=== PATIENT | male | born 1960 | race Caucasian/White ===

== ENCOUNTER 2021-06-06 16:06 | Outpatient (CLI) | payer BC, SELFPAY ==
[2021-06-06 16:58] LABS: Absolute Lymphocyte Count 2.09 X10^3/uL (0.83-4.51); Absolute Neutrophil Count 6.6 X10^3/uL (2.0-7.7); Basophil# 0.07 X10^3/uL; Basophil% 0.7 % (0-1); Eosinophil# 0.54 X10^3/uL; Eosinophils% 5.2 % (0-5); Hematocrit 39.1 % (40-54); Hemoglobin 12.8 g/dL (13.0-16.5); Lymphocyte # 2.09 X10^3/ul (0.83-4.51); Mean Corp Hgb Conc 32.7 g/dL (32-36); Mean Corpuscular Hgb 30.9 pg (27.0-32.0); Mean Corpuscular Volume 94.4 fL (80-94); Mean Platelet Vol. 10.9 fl (6.2-12.0); Monocyte# 1.12 X10^3/uL; Monocyte% 10.7 % (0-10); NRBC Flagged by Analyzer 0 % (0-5); Platelet Count 298 K/mm3 (150-450); RBC Distribution Width CV 13.6 % (11.6-14.6); RBC Distribution Width SD 48.1 fl (35.1-43.9); Red Blood Count 4.14 M/mm3 (4.6-6.2); White Blood Count 10.5 K/mm3 (4.4-11.0)
[2021-06-06 17:14] LABS: Hemoglobin A1c 5.5 % (3.8-5.6)
[2021-06-06 17:44] LABS: Vitamin D,25 Hydroxy 14.8 ng/mL
[2021-06-06 17:50] LABS: ALB/GLOB Ratio 1.2 RATIO (0.9-2.4); AST(SGOT) 19 U/L (15-37); Alanine Aminotransfer ALT/SGPT 26 U/L (16-61); Albumin, Serum 3.8 g/dL (3.2-5.0); Alkaline Phosphatase 87 U/L (45-117); Anion Gap 4 (5-15); BUN 26 mg/dL (7-18); Calcium,Total 8.7 mg/dL (8.5-10.1); Chloride 103 mmol/L (98-107); Cholesterol 158 mg/dL (200); Creatinine, Serum 1.18 mg/dL (0.70-1.30); EST Glomerular Filtration Rate 67 mL/min (>60); Est Glom Filt Rate - Afr Amer 81 mL/min (>60); Globulin 3.2 g/dL (2.2-4.2); Glucose 67 mg/dL (74-106); High Density Lipoprotein 31 mg/dL; PSA,Total - Annual Screen 2.79 ng/mL (0.00-4.00); Potassium 3.5 mmol/L (3.5-5.1); Sodium Level 137 mmol/L (136-145); T4 Free Direct 1.01 ng/dL (0.76-1.46); Triglycerides 83 mg/dL; Very Low Density Lipoprotein 17 mg/dL (5-40)
== END 2021-06-06 23:59 | disposition short-term general hospital (02) ==
LOC: BIMLAB 16:07
PROVIDERS: PCP Internal Medicine; Referring Provider Internal Medicine; Visit Provider Internal Medicine
DX: E03.9 Hypothyroidism, unspecified (principal); M53.9 Dorsopathy, unspecified; E78.5 Hyperlipidemia, unspecified; I10 Essential (primary) hypertension; M19.90 Unspecified osteoarthritis, unspecified site; J30.2 Other seasonal allergic rhinitis; Z12.5 Encounter for screening for malignant neoplasm of prostate
CPT/HCPCS: 36415; 80053; 80061; 82306; 83036; 84153; 84439; 84443; 84481; 85025; G0103

== ENCOUNTER 2021-06-23 17:44 | Outpatient (CLI) | payer BC, SELFPAY ==
--- NOTE | 2021-06-23 17:46 | CT_ITS ---
STUDY: CT ABDOMEN WITH CONTRAST REASON FOR EXAM: Male, 60 years old. Pain, possible incarcerated hernia RADIATION DOSAGE (If Supplied By Facility): CTDIvol = ( 17.38 ) mGy, DLP = ( 783.91 ) mGycm TECHNIQUE: Transaxial images were obtained post I.V. administration of Oral and amp; IV Read i-CAT and amp; 100mL Isovue-300, and with oral contrast. Sagittal and coronal images were reconstructed. Individualized dose optimization techniques were used for this CT. COMPARISON: None. FINDINGS: The visualized lung bases are unremarkable. The visualized portions of the heart are within normal limits. Normal liver. Normal gallbladder and extrahepatic biliary system. Normal spleen. Normal pancreas. Normal bilateral adrenal glands. Normal right kidney. Normal left kidney. Normal visualized stomach. Normal small intestine. Retained stool noted throughout the majority of the colon. There are scattered colonic diverticula without CT evidence of acute diverticulitis. There is non-visualization of the appendix. There is diffuse atherosclerotic calcification of the abdominal aorta, without a demonstrated aneurysm. Normal inferior vena cava. Normal retroperitoneum. There is a prominent fat-containing hernia just to the right of midline but no evidence of associated inflammation to suspect incarceration. There is no associated ileus or obstruction. There are diffuse degenerative changes of the visualized lumbar spine, and pelvis. CT/Abdomen WITH IV Contrast IMPRESSION: No suspicious solid abnormality Fat-containing ventral hernia just to the right of midline but no evidence of incarceration or acute inflammation. Scattered colonic diverticula, no CT evidence of acute diverticulitis Degenerative bony changes Electronically Signed: Miguel Wright MD at 19:11 EST ,
== END 2021-06-23 23:59 | disposition home or self-care (01) ==
LOC: CT 17:46
PROVIDERS: PCP Internal Medicine; Visit Provider Surgery
DX: K46.0 Unspecified abdominal hernia with obstruction, without gangrene (principal)
CPT/HCPCS: 74160; Q9967

== ENCOUNTER 2021-07-13 10:22 | Emergency (ER) | payer BC, SELFPAY ==
[2021-07-13 10:22] VITALS: BP 161/94; PULSE 74; RESP 18; TEMP 36.6; O2SAT 100; BMI 34.5
--- NOTE | 2021-07-13 10:53 | EDS_ITS ---
HPI History of Present Illness HPI Narrative: Patient presents with right knee pain that has been getting progressively worse over the past 2 weeks. Patient denies any trauma or injury. Patient describes his pain as sharp. Patient states it is worse with ambulation. Patient states he walks approximately 7 miles per day at work. Patient states his knee has been giving out on him at times. Patient denies any other paresthesias or weakness. Patient denies any swelling. Chief Complaint: Lower Extremity Injury Informant: patient Onset/Context/Timing Onset: Weeks (2) Context: Gradual Onset Timing: Continuous Quality of Pain: Sharp Location: Right knee Worsened by: Ambulation Relieved by: Nothing Associated Symptoms Associated Symptoms: Positive for Weakness (Gives out at times); Negative for Parasthesia and Loss of Funtion PFSH [facility] Medical History Arthritis Back problem Hyperlipemia Hypertension Hypothyroidism Seasonal allergies Home Medications albuterol sulfate 90 mcg/actuation aerosol inhaler 2 puff INHALATION Q6H PRN #8.5 g 06/05/21 [Rx Last Taken Unknown] cyclobenzaprine 5 mg tablet 5 mg PO BID #180 tab 06/05/21 [Rx Last Taken Unknown] ferrous sulfate 325 mg (65 mg iron) tablet 325 mg PO BID #180 tab 06/05/21 [Rx Last Taken Unknown] lisinopril 20 mg-hydrochlorothiazide 25 mg tablet 1 tab PO BID #180 tab 06/05/21 [Rx Last Taken Unknown] meloxicam 15 mg tablet 15 mg PO DAILY #90 tab 06/05/21 [Rx Last Taken Unknown] paroxetine HCl 20 mg tablet 20 mg PO DAILY #90 tab 06/05/21 [Rx Last Taken Unknown] trazodone 100 mg tablet 100 mg PO DAILY #90 tab 06/05/21 [Rx Last Taken Unknown] levothyroxine 137 mcg tablet 137 mcg PO DAILY #90 tab 06/09/21 [Rx Last Taken Unknown] Allergy/AdvReac Type Severity Reaction Status Date / Time Penicillins Allergy Unknown unknown Verified 07/13/21 10:24 Sulfa (Sulfonamide Allergy Unknown unknown Verified 07/13/21 10:24 Antibiotics) Family History Mother Hypertension Father Cancer Surgical History History of appendectomy History of neck surgery History of umbilical hernia repair History of vasectomy Social History Smoking Status: Current every day smoker tobacco type: cigarettes alcohol intake: never substance use type: does not use ROS ROS ED Constitutional Constitutional ED: Denies chills or fever(s) Eyes Eyes: Denies blurry vision or change in vision ENT ENT ED: Denies rhinorrhea or sore throat Cardiovascular Cardiovascular: Denies chest pain or palpitations Respiratory/Chest Respiratory/Chest: Denies cough or dyspnea Gastrointestinal Gastrointestinal: Denies nausea or vomiting Genitourinary Genitourinary ED: Denies dysuria or hematuria Musculoskeletal Musculoskeletal: Reports neck pain; Denies back pain Integumentary Denies abscess or rash Neurologic Neurologic: Denies headache(s) or weakness Allergic/Immunologic Allergic/Immunologic ED: Denies mouth swelling or urticaria EXAM Physical Exam Const Vital Signs: 07/13/21 10:22 Temperature 97.8 F Temperature Source Temporal Pulse Rate 74 Respiratory Rate 18 Blood Pressure 161/94 H Blood Pressure Mean 116 Pulse Ox 100 Oxygen Delivery Method Room Air Positive well nourished, well developed and obese General Appearance ED: well developed and NAD Nutritional Appearance: obese HEENT Reports moist mucous membranes Neck full ROM Extremity Extremity Narrative: There is tenderness over the medial aspect of the right knee. There is no edema or ecchymosis. There is no bony crepitance or step- off. There is no effusion. There is good range of motion. Extensor mechanism is intact. Strength is 5/5 bilaterally in the lower extremities. There are no sensory deficits. Pedal pulses are equal bilaterally. Neuro oriented x3, CN's II-XII intact bilaterally, moves all extremities and no sensory deficits noted Sensorium / Orientation: alert Motor Exam: strength 5/5 throughout Psych mental status grossly normal MDM MDM MDM Narrative Medical decision making narrative: X-rays of the right knee were obtained. There are 4 views. On my interpretation, there is no acute fracture. There is no dislocation. There are some degenerative changes noted. There is no soft tissue swelling. Radiologist also interpreted the x-rays and agrees. Patient was instructed to ice and elevate the right knee. Patient was given restrictions for work. Patient was instructed to continue his meloxicam as prescribed. Patient was instructed to follow-up with his primary care physician in 5 to 7 days. Patient understood and was agreeable with the plan. All questions were answered. Radiography Diagnostic Testing: Clinical Impression(s) from Imaging Studies Knee X-Ray 07/13/21 11:15 IMPRESSION: Degenerative arthrosis. Electronically Signed: Elroy Velázquez MD at 11:58 EST Reading Location ID and State: [facility] / [place] , Service support , Discharge Plan Triage Chief Complaint: Lower Extremity Injury ED Provider: Yogesh James Dx/Rx/DC Orders Clinical Impression: Pain in right knee Instructions: ED Knee Pain of Uncertain Cause, ED Osteoarthritis Prescriptions: No Action ferrous sulfate 325 mg (65 mg iron) tablet 325 mg PO BID Qty: 180 RF: 1 cyclobenzaprine 5 mg tablet 5 mg PO BID Qty: 180 RF: 1 lisinopril-hydrochlorothiazide 20-25 mg tablet 1 tab PO BID Qty: 180 RF: 1 meloxicam 15 mg tablet 15 mg PO DAILY Qty: 90 RF: 1 paroxetine HCl 20 mg tablet 20 mg PO DAILY Qty: 90 RF: 1 trazodone 100 mg tablet 100 mg PO DAILY Qty: 90 RF: 1 albuterol sulfate 90 mcg/actuation HFA aerosol inhaler 2 puff inhalation Q6H PRN (Reason: shortness of breath or wheezing) Qty: 8.5 RF: 1 levothyroxine 137 mcg tablet 137 mcg PO DAILY Qty: 90 RF: 0 Stand Alone Forms: Work Status Form Primary Care Provider: Gladis Carbone Referrals: Gladis Carbone MD [Primary Care Provider] - 3-5 Days Disposition Disposition: Home, Self Care
--- NOTE | 2021-07-13 11:15 | RAD_ITS ---
STUDY: X-RAY - RIGHT KNEE REASON FOR EXAM: Male, 60 years old. Injury/Pain TECHNIQUE: For view(s) of the knee. COMPARISON: None. FINDINGS: Normal visualized distal femur. Normal visualized proximal tibia and fibula. Normal proximal tibiofibular articulation. There is no demonstrated fracture. There is mild degenerative arthrosis of the medial femorotibial compartment. Normal lateral femorotibial compartment. There is mild degenerative arthrosis of the patellofemoral articulation. There is a soft tissue prominence in the suprapatellar region suggesting a small volume joint effusion. The soft tissue structures are unremarkable. RAD/Knee 4 or More Views IMPRESSION: Degenerative arthrosis. Electronically Signed: Elroy Velázquez MD at 11:58 EST ,
== END 2021-07-13 12:58 | disposition home or self-care (01) ==
PROVIDERS: Emergency Provider Emergency Medicine; PCP Internal Medicine; Visit Provider Emergency Medicine
DX: M25.561 Pain in right knee (principal)
CPT/HCPCS: 73564; 99282

== ENCOUNTER → 2021-11-19 | Outpatient (CLI) | payer BC, SELFPAY ==
[2021-11-19 15:55] LABS: AST(SGOT) 21 U/L (15-37); Alanine Aminotransfer ALT/SGPT 28 U/L (16-61); Albumin, Serum 3.5 g/dL (3.2-5.0); Alkaline Phosphatase 100 U/L (45-117); Anion Gap 5 (5-15); BUN 32 mg/dL (7-18); BUN/Creat Ratio 26.4 RATIO (10-20); Chloride 104 mmol/L (98-107); Creatinine, Serum 1.21 mg/dL (0.70-1.30); EST Glomerular Filtration Rate 65 mL/min (>60); Est Glom Filt Rate - Afr Amer 79 mL/min (>60); Globulin 3.4 g/dL (2.2-4.2); Glucose 106 mg/dL (74-106); Protein, Total 6.9 g/dL (6.4-8.2); Sodium Level 141 mmol/L (136-145); T4 Free Direct 0.98 ng/dL (0.76-1.46)
== END | disposition home or self-care (01) ==
LOC: BIMLAB 11:53
PROVIDERS: PCP Internal Medicine; Referring Provider Internal Medicine; Visit Provider Internal Medicine
DX: I10 Essential (primary) hypertension (principal); E03.9 Hypothyroidism, unspecified
CPT/HCPCS: 36415; 80053; 84439; 84443; 84481

== ENCOUNTER → 2022-02-03 | Outpatient (CLI) | payer BC, SELFPAY ==
[2022-02-03 15:59] LABS: Free T3 2.2 pg/mL (2.18-3.98); T4 Free Direct 1.24 ng/dL (0.76-1.46)
== END | disposition home or self-care (01) ==
LOC: BIMLAB 14:19
PROVIDERS: PCP Internal Medicine; Referring Provider Internal Medicine; Visit Provider Internal Medicine
DX: E03.9 Hypothyroidism, unspecified (principal)
CPT/HCPCS: 36415; 84439; 84443; 84481

== ENCOUNTER → 2022-06-09 | Outpatient (CLI) | payer BC, SELFPAY ==
[2022-06-09 15:34] LABS: Absolute Lymphocyte Count 1.39 X10^3/uL (0.83-4.51); Absolute Neutrophil Count 7.5 X10^3/uL (2.0-7.7); Basophil# 0.06 X10^3/uL; Basophil% 0.6 % (0-1); Eosinophil# 0.49 X10^3/uL; Eosinophils% 4.5 % (0-5); Hematocrit 44.2 % (40-54); Hemoglobin 14.4 g/dL (13.0-16.5); Lymphocyte # 1.39 X10^3/ul (0.83-4.51); Lymphocyte % 12.8 % (19-41); Mean Corp Hgb Conc 32.6 g/dL (32-36); Mean Corpuscular Hgb 31.2 pg (27.0-32.0); Mean Corpuscular Volume 95.9 fL (80-94); Mean Platelet Vol. 10.6 fl (6.2-12.0); Monocyte# 1.38 X10^3/uL; Monocyte% 12.7 % (0-10); NRBC Flagged by Analyzer 0 % (0-5); Neutrophil % 68.7 % (47-70); Platelet Count 366 K/mm3 (150-450); RBC Distribution Width SD 53.3 fl (35.1-43.9); Red Blood Count 4.61 M/mm3 (4.6-6.2); White Blood Count 10.9 K/mm3 (4.4-11.0)
[2022-06-09 16:26] LABS: ALB/GLOB Ratio 1.1 RATIO (0.9-2.4); AST(SGOT) 20 U/L (15-37); Alanine Aminotransfer ALT/SGPT 29 U/L (16-61); Albumin, Serum 3.8 g/dL (3.2-5.0); Alkaline Phosphatase 103 U/L (45-117); Anion Gap 7 (5-15); BUN 24 mg/dL (7-18); BUN/Creat Ratio 22.2 RATIO (10-20); Calcium,Total 9.1 mg/dL (8.5-10.1); Chloride 99 mmol/L (98-107); Cholesterol 159 mg/dL (200); Creatinine, Serum 1.08 mg/dL (0.70-1.30); EST Glomerular Filtration Rate 74 mL/min (>60); Est Glom Filt Rate - Afr Amer 90 mL/min (>60); Free T3 1.9 pg/mL (2.18-3.98); Globulin 3.5 g/dL (2.2-4.2); Glucose 98 mg/dL (74-106); High Density Lipoprotein 28 mg/dL; Iron 86 ug/dL (65-175); Iron Binding Capacity,Total 288 ug/dL (250-450); PERCENT IRON SATURATION 29.9 % (15.0-55.0); Protein, Total 7.3 g/dL (6.4-8.2); Sodium Level 140 mmol/L (136-145); T4 Free Direct 1.16 ng/dL (0.76-1.46); Triglycerides 235 mg/dL; Very Low Density Lipoprotein 47 mg/dL (5-40)
[2022-06-09 16:58] LABS: Vitamin D,25 Hydroxy 22.1 ng/mL
== END | disposition home or self-care (01) ==
LOC: BIMLAB 14:36
PROVIDERS: PCP Internal Medicine; Referring Provider Internal Medicine; Visit Provider Internal Medicine
DX: E03.9 Hypothyroidism, unspecified (principal); E78.5 Hyperlipidemia, unspecified; I10 Essential (primary) hypertension; E55.9 Vitamin D deficiency, unspecified; D64.9 Anemia, unspecified
CPT/HCPCS: 36415; 80053; 80061; 82306; 83540; 83550; 84153; 84439; 84443; 84481; 85025; G0103

== ENCOUNTER → 2022-07-24 | Outpatient (CLI) | payer BC, SELFPAY ==
[2022-07-24 12:37] LABS: Free T3 1.9 pg/mL (2.18-3.98); T4 Free Direct 1.29 ng/dL (0.76-1.46)
== END | disposition home or self-care (01) ==
LOC: BIMLAB 09:37
PROVIDERS: PCP Internal Medicine; Visit Provider Internal Medicine
DX: E03.9 Hypothyroidism, unspecified (principal)
CPT/HCPCS: 36415; 84439; 84443; 84481

== ENCOUNTER → 2022-09-18 | Outpatient (CLI) | payer BC, SELFPAY ==
[2022-09-18 13:22] LABS: Free T3 2.3 pg/mL (2.18-3.98); T4 Free Direct 1.46 ng/dL (0.76-1.46)
== END | disposition home or self-care (01) ==
LOC: BIMLAB 08:59
PROVIDERS: PCP Internal Medicine; Referring Provider Internal Medicine; Visit Provider Internal Medicine
DX: E03.9 Hypothyroidism, unspecified (principal)
CPT/HCPCS: 36415; 84439; 84443; 84481

== ENCOUNTER → 2022-11-17 | Outpatient (CLI) | payer BC, SELFPAY ==
[2022-11-17 12:22] LABS: Absolute Lymphocyte Count 1.67 X10^3/uL (0.83-4.51); Basophil# 0.06 X10^3/uL; Basophil% 0.7 % (0-1); Eosinophil# 0.48 X10^3/uL; Eosinophils% 5.7 % (0-5); Hematocrit 42.2 % (40-54); Hemoglobin 13.7 g/dL (13.0-16.5); Lymphocyte # 1.67 X10^3/ul (0.83-4.51); Mean Corp Hgb Conc 32.5 g/dL (32-36); Mean Corpuscular Hgb 31.1 pg (27.0-32.0); Mean Corpuscular Volume 95.9 fL (80-94); Mean Platelet Vol. 10.9 fl (6.2-12.0); Monocyte# 1.15 X10^3/uL; Monocyte% 13.8 % (0-10); NRBC Flagged by Analyzer 0 % (0-5); Neutrophil # 4.97 X10^3/uL (2.7-7.7); Neutrophil % 59.4 % (47-70); Platelet Count 388 K/mm3 (150-450); RBC Distribution Width CV 14.4 % (11.6-14.6); RBC Distribution Width SD 50.3 fl (35.1-43.9); White Blood Count 8.4 K/mm3 (4.4-11.0)
[2022-11-17 12:33] LABS: Vitamin D,25 Hydroxy 90.2 ng/mL
[2022-11-17 13:09] LABS: AST(SGOT) 20 U/L (15-37); Alanine Aminotransfer ALT/SGPT 40 U/L (16-61); Albumin, Serum 3.6 g/dL (3.2-5.0); Alkaline Phosphatase 102 U/L (45-117); Anion Gap 8 (5-15); BUN 11 mg/dL (7-18); BUN/Creat Ratio 10.4 RATIO (10-20); Calcium,Total 9.1 mg/dL (8.5-10.1); Chloride 100 mmol/L (98-107); Cholesterol 166 mg/dL (200); Creatinine, Serum 1.06 mg/dL (0.70-1.30); EST Glomerular Filtration Rate 76 mL/min (>60); Est Glom Filt Rate - Afr Amer 91 mL/min (>60); Free T3 2.8 pg/mL (2.18-3.98); Globulin 3.6 g/dL (2.2-4.2); Glucose 68 mg/dL (74-106); High Density Lipoprotein 28 mg/dL; Potassium 3.3 mmol/L (3.5-5.1); Protein, Total 7.2 g/dL (6.4-8.2); Sodium Level 135 mmol/L (136-145); T4 Free Direct 1.84 ng/dL (0.76-1.46); Thyroid Stim Hormone (TSH) 0.34 uIU/mL (0.358-3.74); Triglycerides 159 mg/dL; Very Low Density Lipoprotein 32 mg/dL (5-40)
== END | disposition home or self-care (01) ==
LOC: BIMLAB 08:39
PROVIDERS: PCP Internal Medicine; Visit Provider Internal Medicine
DX: E55.9 Vitamin D deficiency, unspecified (principal); D64.9 Anemia, unspecified; E03.9 Hypothyroidism, unspecified; E78.5 Hyperlipidemia, unspecified; I10 Essential (primary) hypertension
CPT/HCPCS: 36415; 80053; 80061; 82306; 84439; 84443; 84481; 85025

== ENCOUNTER → 2023-05-07 | Outpatient (CLI) | payer BC, SELFPAY ==
[2023-05-07 12:48] LABS: Free T3 2.7 pg/mL (2.18-3.98); T4 Free Direct 1.27 ng/dL (0.76-1.46); Thyroid Stim Hormone (TSH) 6.55 uIU/mL (0.358-3.74)
== END | disposition home or self-care (01) ==
LOC: BIMLAB 10:41
PROVIDERS: PCP Internal Medicine; Referring Provider Internal Medicine; Visit Provider Internal Medicine
DX: E03.9 Hypothyroidism, unspecified (principal)
CPT/HCPCS: 36415; 84439; 84443; 84481

== ENCOUNTER → 2023-06-15 | Outpatient (CLI) | payer BC, SELFPAY ==
--- NOTE | 2023-06-15 06:59 | CT_ITS ---
STUDY: LOW DOSE CT LUNG CANCER SCREENING REASON FOR EXAM: Male, 62 years old. Chronic long-term smoker. Patient smoke between 2 and 4 packs per day for 46 years. RADIATION DOSAGE (If Supplied By Facility): CTDIvol = ( 4.02 ) mGy, DLP = ( 152 ) mGycm TECHNIQUE: No contrast was administered. Low dose technique was utilized (average mAS-38 and kVp 120). 1.25 mm axial source images with a slice interval of 1.25-mm were reconstructed in lung windows. 2.5 mm axial source images with a slice interval of 2.5-mm were reconstructed in lung windows. 5.0 mm axial source images with a slice interval of 5.0-mm were reconstructed in soft tissue windows. COMPARISON: None. NODULES: No suspicious nodules are seen. Emphysema: There is evidence of linear scarring in the right middle lobe as well as in the lingular segment of the left upper lobe. Endobronchial lesion: None Aorta: Mild atherosclerotic calcific plaques at the level of the aortic arch. CORONARY ARTERIES: Coronary artery calcification is seen. Heart: Unremarkable Pulmonary artery: Unremarkable Mediastinal nodes: Small benign appearing mediastinal lymph nodes. Other chest and abdominal findings: CT/Low Dose CT Lung Screening IMPRESSION: Lung-RADS category 2 - Continue annual screening with LDCT in 12 months. IMPORTANT NOTES FOR USE: ACR Lung-RADS Version 1.1 Assessment Categories Release Date: 2018 Category: Coded 0-4 bases on nodule(s) with highest degree of suspicion. Negative screen is defined as categories 1 and 2; a positive screen is defined as categories 3 and 4. Category 3 and 4A nodules that are unchanged on interval CT should be coded as category 2, and individuals returned to screening in 12 months. Category 4X: Category 3 or 4 nodules with additional imaging findings that increase the suspicion of lung cancer, such as spiculation, GGN that doubles in size in 1 year, enlarged lymph notes, etc. Category Modifiers: S (significant finding unrelated to lung cancer) Electronically Signed: Arsen Black MD at 8:44 EST ,
== END | disposition home or self-care (01) ==
PROVIDERS: PCP Internal Medicine; Referring Provider Internal Medicine; Visit Provider Internal Medicine
DX: Z12.2 Encounter for screening for malignant neoplasm of respiratory organs (principal); F17.210 Nicotine dependence, cigarettes, uncomplicated
CPT/HCPCS: 71271

== ENCOUNTER 2023-07-16 06:18 | Day surgery (SDC) | payer BC, SELFPAY ==
[2023-07-16 06:44] VITALS: BP 136/87; PULSE 102; RESP 18; TEMP 36.6; O2SAT 97; BMI 36.1
--- NOTE | 2023-07-16 06:46 | HP.PCM_ITS ---
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 Blindstitch Required: No Is patient in pain?: No Allergies Penicillins Allergy (Unknown, Verified 06/15/23 08:07) unknownSulfa (Sulfonamide Antibiotics) Allergy (Unknown, Verified 06/15/23 08:07) unknown Medications Handicap Placard #1 ea 05/31/23 [Rx Confirmed 06/15/23] albuterol sulfate 90 mcg/actuation aerosol inhaler 2 puff inhalation Q6H PRN shortness of breath or wheezing #8.5 grams 05/31/23 [Rx Confirmed 06/15/23] cyclobenzaprine 5 mg tablet 5 mg PO BID #180 tabs 05/31/23 [Rx Confirmed 06/15/23] ferrous sulfate 325 mg (65 mg iron) tablet 325 mg PO BID #180 tabs 05/31/23 [Rx Confirmed 06/15/23] levothyroxine 137 mcg tablet 137 mcg PO DAILY #90 tabs 05/31/23 [Rx Confirmed 06/15/23] lisinopril 20 mg-hydrochlorothiazide 25 mg tablet 1 tab PO BID #180 tabs 05/31/23 [Rx Confirmed 06/15/23] meloxicam 15 mg tablet 15 mg PO DAILY #90 tabs 05/31/23 [Rx Confirmed 06/15/23] paroxetine HCl 20 mg tablet 20 mg PO DAILY #90 tabs 05/31/23 [Rx Confirmed 06/15/23] trazodone 100 mg tablet 100 mg PO DAILY #90 tabs 05/31/23 [Rx Confirmed 06/15/23] varenicline 0.5 mg (11)-1 mg (42) tablets in a dose pack (Chantix Starting Month Box) See Rx Instructions PO PER PKG DIR #53 tabs 05/31/23 [Rx Confirmed 06/15/23] varenicline 1 mg tablet (Chantix Continuing Month Box) 1 mg PO BID Cigarette smoker #60 tabs 05/31/23 [Rx Confirmed 06/15/23] PFSH Medical History Arthritis Back problem Hyperlipemia Hypertension Hypothyroidism Seasonal allergies Surgical History History of appendectomy History of neck surgery History of umbilical hernia repair History of vasectomy Family History Mother HypertensionFather Cancer Social History Smoking Status: Current every day smoker tobacco type: cigarettes alcohol intake: never substance use type: does not use HPI HPI HPI: 62-year-old gentleman presents for evaluation regarding iron deficiency anemia. I had previously seen him June 16, 2021 with a 30-year history of recurrent ventral incisional hernia at the umbilicus which was asymptomatic. He had ongoing tobacco use at that time and an abnormal clinical pulmonary exam consistent with COPD. I did not feel that he was a good candidate to proceed with a hernia repair. We obtained a CT of the abdomen on June 23, 2021. That demonstrated a fat-containing ventral hernia just to the right of the midline but with no evidence of incarceration or acute inflammation. I have personally reviewed the CT images and again there is a safe amount of fatty tissue within that hernia I measured the fascial defect to be approximately 24 mm. His current laboratory most recently from November 17, 2022 demonstrates a hemoglobin of 13.7 with hematocrit of 42.2 and a platelet count of 388,000. Potassium level at that time was low at 3.3. By report he has been on long-term iron replacement. He has never had a screening colonoscopy. The patient is referred by Dr. Gladis Carbone written compromise surgical consult and recommendations will return to him. We again briefly talked about his recurrent ventral hernia at the umbilicus. It is absolutely asymptomatic to him. He is not interested in pursuing repair. He states occasionally has bright red blood in his stool notes been going on for at least 10 to 15 years and he attributes that to hemorrhoids. ROS Endo Endocrine: Yes thyroid disease Musc Musculoskeletal: Yes back problems, arthritis and joint pain Cardio Cardiovascular: Yes high blood pressure Gastro Gastrointestinal: Yes blood in stool and Yes hemorrhoids Exam Const General: cooperative, comfortable and no acute distress HENMT Head: normal to inspection Eyes General: appearance normal, both eyes and all related structures Chest Other: Increased AP diameter Resp Other: Slight wheeze more on the right than the left Cardio Rate: regular rate Rhythm: regular rhythm GI Other: Overweight, well-healed oblique incision right lower quadrant remote appendectomy, large soft subcutaneous mass just to the right of the umbilicus. Not reducible. Musc Cervical Spine: normal cervical lordosis Skin Other: Hyperpigmentation bilateral lower extremities bilateral malleolar Neuro General: patient alert, patient awake and patient oriented x3 Extrem General: no calf tenderness Other: 1+ edema bilateral lower extremities Psych Appearance: grossly normal Assessment and Plan Assessment and Plan (1) Smoking greater than 40 pack years: Status: Acute (2) Incarcerated hernia: Status: Acute (3) Screening for intestinal cancer: Status: Acute Plan: We did briefly discuss his recurrent ventral incisional hernia to the right of the umbilicus. I suggested we could pursue a repair but I would do my best to try to leverage him off his tobacco ahead of time. He has had the area for a long long time and it is asymptomatic and he is not interested in pursuing repair at this time. He did state that he is working with Dr. Gladis Carbone in an attempt to try to cease his tobacco use. I have discussed with him the screening colonoscopy with possible biopsy or polypectomy as indicated. He is aware of the technique, benefit, risk, alternatives. Because of his long-term tobacco use we will use monitored anesthesia care. I appreciate the ongoing option of assisting with the surgical care. Copy: Dr. Gladis Manjarrez M.D., F.A.C.S I have examined the patient and the H&P has been reviewed. There are no clinical changes since date of exam. Plan to proceed with a screening colonoscopy today with possible biopsy or polypectomy as indicated. He is aware of the technique, benefit, risk, alternatives. He has had an opportunity to ask and have questions answered. We will proceed as noted. Israel Manjarrez M.D., F.A.C.S.
[2023-07-16] MEDS: Lactated Ringers 1,000 ML 15 ML IV (06:55)
[2023-07-16 07:45] VITALS: BP 136/87; BP 77/65; PULSE 90; RESP 20; TEMP 36.6; O2SAT 90
--- NOTE | 2023-07-16 07:47 | OP.COLON_ITS ---
Patient Name: Asher Young Procedure Date: 07/16/2023 7:11 AM Date of : 1960 Age: 62 Procedure: Colonoscopy Indications: Screening for colorectal malignant neoplasm Providers: Israel Manjarrez MD Referring MD: Gladis Carbone Medicines: See the Anesthesia note for documentation of the administered medications Patient Profile: Last Colonoscopy: none. The patient's first colonoscopy is today. Complications: No immediate complications. Procedure: Pre-Anesthesia Assessment: - Prior to the procedure, a History and Physical was performed, and patient medications and allergies were reviewed. The patient's tolerance of previous anesthesia was also reviewed. The risks and benefits of the procedure and the sedation options and risks were discussed with the patient. All questions were answered, and informed consent was obtained. Prior Anticoagulants: The patient has taken no anticoagulant or antiplatelet agents. ASA Grade Assessment: II - A patient with mild systemic disease. After reviewing the risks and benefits, the patient was deemed in satisfactory condition to undergo the procedure. After I obtained informed consent, the scope was passed under direct vision. Throughout the procedure, the patient's blood pressure, pulse, and oxygen saturations were monitored continuously. The adult colonoscope was introduced through the anus and advanced to the cecum, identified by appendiceal orifice and ileocecal valve. The colonoscopy was performed without difficulty. The patient tolerated the procedure well. The quality of the bowel preparation was good. The ileocecal valve and the appendiceal orifice were photographed. Scope In: 7:29:03 AM Scope Withdrawal Time 0 hours 6 minutes 37 seconds Scope Out: 7:40:55 AM Total Procedure Duration Time 0 hours 11 minutes 52 seconds Findings: The digital rectal exam findings include non-thrombosed internal hemorrhoids and internal hemorrhoids that prolapse with straining, but spontaneously regress to the resting position (Grade II). Pertinent negatives include normal prostate (size, shape, and consistency). Multiple diverticula were found in the sigmoid colon and descending colon. The exam was otherwise without abnormality. Impression: - Non-thrombosed internal hemorrhoids and internal hemorrhoids that prolapse with straining, but spontaneously regress to the resting position (Grade II) found on digital rectal exam. - Diverticulosis in the sigmoid colon and in the descending colon. - The examination was otherwise normal. - No specimens collected. Recommendation: - Discharge patient to home. - Resume previous diet. - Continue present medications. - Repeat colonoscopy in 10 years for screening purposes. Procedure Code(s): --- Professional --- 92971, Colonoscopy, flexible; diagnostic, including collection of specimen(s) by brushing or washing, when performed (separate procedure) Diagnosis Code(s): --- Professional --- Z12.11, Encounter for screening for malignant neoplasm of colon K64.1, Second degree hemorrhoids K57.30, Diverticulosis of large intestine without perforation or abscess without bleeding CPT copyright 2021 [employer]. All rights reserved. The codes documented in this report are preliminary and upon asp net c developer review may be revised to meet current compliance requirements. Israel Manjarrez MD 07/16/2023 7:47:29 AM This report has been signed electronically. Number of Addenda: 0 Note Initiated On: 07/16/2023 7:11 AM
--- NOTE | 2023-07-16 07:47 | OP.CCLET_ITS ---
07/16/2023 Gladis Carbone [facility] [address] [place] [address] Re : Colonoscopy procedure for Asher Young Dear Dr. Carbone This procedure was performed on Sunday, July 16, 2023. My impressions and recommendations are as follows: Impressions : - Non-thrombosed internal hemorrhoids and internal hemorrhoids that prolapse with straining, but spontaneously regress to the resting position (Grade II) found on digital rectal exam. - Diverticulosis in the sigmoid colon and in the descending colon. - The examination was otherwise normal. - No specimens collected. Recommendations : - Discharge patient to home. - Resume previous diet. - Continue present medications. - Repeat colonoscopy in 10 years for screening purposes. My findings are described in the full procedure note, which is enclosed. If I can be of further assistance, please feel free to contact me at Doctor phone number(s): Work: . Sincerely, Israel Manjarrez MD 07/16/2023 7:47:29 AM This report has been signed electronically.
[2023-07-16 07:48] VITALS: BP 136/87; BP 88/59; PULSE 96; RESP 18; O2SAT 94
[2023-07-16 07:51] VITALS: BP 108/65; BP 136/87; PULSE 94; RESP 18; O2SAT 94
[2023-07-16 07:55] VITALS: BP 114/75; BP 136/87; PULSE 93; RESP 18; TEMP 36.6; O2SAT 93
[2023-07-16 08:16] VITALS: BP 136/87
== END 2023-07-16 08:25 | disposition home or self-care (01) ==
LOC: EN 06:23 → AC 06:24
PROVIDERS: PCP Internal Medicine; Referring Provider Internal Medicine; Visit Provider Surgery
PROC: 0DJD8ZZ Inspection of Lower Intestinal Tract, Via Natural or Artificial Opening Endoscopic (ICD-10-PCS; CPT 45378; principal; 2023-07-16 07:25)
DX: Z12.11 Encounter for screening for malignant neoplasm of colon (principal); K43.9 Ventral hernia without obstruction or gangrene; K64.1 Second degree hemorrhoids; D50.9 Iron deficiency anemia, unspecified; K57.30 Diverticulosis of large intestine without perforation or abscess without bleeding; I10 Essential (primary) hypertension; E03.9 Hypothyroidism, unspecified; F17.210 Nicotine dependence, cigarettes, uncomplicated; Z79.51 Long term (current) use of inhaled steroids; Z79.899 Other long term (current) drug therapy
CPT/HCPCS: 45378; J7120; J2405

== ENCOUNTER → 2023-11-22 | Outpatient (CLI) | payer BC, SELFPAY ==
[2023-11-22 12:05] LABS: Absolute Lymphocyte Count 1.78 X10^3/uL (0.83-4.51); Absolute Neutrophil Count 8.4 X10^3/uL (2.0-7.7); Basophil# 0.06 X10^3/uL; Basophil% 0.5 % (0-1); Eosinophil# 0.59 X10^3/uL; Eosinophils% 4.8 % (0-5); Hematocrit 39.4 % (40-54); Hemoglobin 12.9 g/dL (13.0-16.5); Lymphocyte # 1.78 X10^3/ul (0.83-4.51); Lymphocyte % 14.5 % (19-41); Mean Corp Hgb Conc 32.7 g/dL (32-36); Mean Corpuscular Hgb 32.7 pg (27.0-32.0); Mean Corpuscular Volume 99.7 fL (80-94); Mean Platelet Vol. 10.4 fl (6.2-12.0); Monocyte# 1.39 X10^3/uL; Monocyte% 11.3 % (0-10); NRBC Flagged by Analyzer 0 % (0-5); Neutrophil # 8.39 X10^3/uL (2.7-7.7); Neutrophil % 68.3 % (47-70); Platelet Count 546 K/mm3 (150-450); RBC Distribution Width CV 13.6 % (11.6-14.6); RBC Distribution Width SD 49.9 fl (35.1-43.9); Red Blood Count 3.95 M/mm3 (4.6-6.2); White Blood Count 12.3 K/mm3 (4.4-11.0)
[2023-11-22 12:31] LABS: Vitamin D,25 Hydroxy 80.5 ng/mL
[2023-11-22 13:19] LABS: ALB/GLOB Ratio 1.6 RATIO (0.9-2.4); AST(SGOT) 24 U/L (15-37); Alanine Aminotransfer ALT/SGPT 29 U/L (16-61); Albumin, Serum 4.2 g/dL (3.2-5.0); Alkaline Phosphatase 75 U/L (45-117); Anion Gap 9 (5-15); BUN 21 mg/dL (7-18); BUN/Creat Ratio 19.3 RATIO (10-20); Chloride 98 mmol/L (98-107); Cholesterol 169 mg/dL (200); Creatinine, Serum 1.09 mg/dL (0.70-1.30); EST Glomerular Filtration Rate 73 mL/min (>60); Est Glom Filt Rate - Afr Amer 88 mL/min (>60); Free T3 2.2 pg/mL (2.18-3.98); Globulin 2.7 g/dL (2.2-4.2); Glucose 83 mg/dL (74-106); High Density Lipoprotein 28 mg/dL; Iron 80 ug/dL (65-175); Iron Binding Capacity,Total 235 ug/dL (250-450); Potassium 3.5 mmol/L (3.5-5.1); Protein, Total 6.9 g/dL (6.4-8.2); Sodium Level 135 mmol/L (136-145); T4 Free Direct 1.34 ng/dL (0.76-1.46); Triglycerides 185 mg/dL; Very Low Density Lipoprotein 37 mg/dL (5-40)
== END | disposition home or self-care (01) ==
LOC: BIMLAB 08:23
PROVIDERS: PCP Internal Medicine; Referring Provider Internal Medicine; Visit Provider Internal Medicine
DX: Z00.00 Encounter for general adult medical examination without abnormal findings (principal); E03.9 Hypothyroidism, unspecified; E55.9 Vitamin D deficiency, unspecified; E78.5 Hyperlipidemia, unspecified; I10 Essential (primary) hypertension; Z12.5 Encounter for screening for malignant neoplasm of prostate
CPT/HCPCS: 36415; 80053; 80061; 82306; 83540; 83550; 83735; 84153; 84439; 84443; 84481; 85025; G0103

== ENCOUNTER → 2023-12-09 | Outpatient (CLI) | payer BC, SELFPAY ==
[2023-12-09 12:14] LABS: Absolute Lymphocyte Count 1.62 X10^3/uL (0.83-4.51); Absolute Neutrophil Count 8.3 X10^3/uL (2.0-7.7); Basophil# 0.07 X10^3/uL; Basophil% 0.6 % (0-1); Eosinophil# 0.77 X10^3/uL; Eosinophils% 6.4 % (0-5); Hematocrit 38.3 % (40-54); Hemoglobin 12.7 g/dL (13.0-16.5); Lymphocyte # 1.62 X10^3/ul (0.83-4.51); Lymphocyte % 13.4 % (19-41); Mean Corp Hgb Conc 33.2 g/dL (32-36); Mean Corpuscular Hgb 32.4 pg (27.0-32.0); Mean Corpuscular Volume 97.7 fL (80-94); Mean Platelet Vol. 10.4 fl (6.2-12.0); Monocyte# 1.24 X10^3/uL; Monocyte% 10.3 % (0-10); NRBC Flagged by Analyzer 0 % (0-5); Neutrophil # 8.25 X10^3/uL (2.7-7.7); Neutrophil % 68.5 % (47-70); Platelet Count 628 K/mm3 (150-450); RBC Distribution Width CV 13.6 % (11.6-14.6); RBC Distribution Width SD 49.3 fl (35.1-43.9); Red Blood Count 3.92 M/mm3 (4.6-6.2); White Blood Count 12.1 K/mm3 (4.4-11.0)
== END | disposition home or self-care (01) ==
LOC: BIMLAB 09:03
PROVIDERS: PCP Internal Medicine; Referring Provider Internal Medicine; Visit Provider Internal Medicine
DX: D75.839 Thrombocytosis, unspecified (principal)
CPT/HCPCS: 36415; 85025

== ENCOUNTER → 2024-06-20 | Outpatient (CLI) | payer BC, SELFPAY ==
[2024-06-20 12:30] LABS: Vitamin B12 989 pg/mL (211-911); Vitamin D,25 Hydroxy 46.5 ng/mL
[2024-06-20 12:35] LABS: Absolute Lymphocyte Count 1.61 X10^3/uL (0.83-4.51); Absolute Neutrophil Count 7.8 X10^3/uL (2.0-7.7); Basophil# 0.06 X10^3/uL; Basophil% 0.5 % (0-1); Eosinophil# 0.81 X10^3/uL; Eosinophils% 7.1 % (0-5); Hematocrit 40.6 % (40-54); Hemoglobin 13.2 g/dL (13.0-16.5); Lymphocyte # 1.61 X10^3/ul (0.83-4.51); Mean Corp Hgb Conc 32.5 g/dL (32-36); Mean Corpuscular Hgb 32.8 pg (27.0-32.0); Mean Corpuscular Volume 100.7 fL (80-94); Mean Platelet Vol. 10.3 fl (6.2-12.0); Monocyte# 1.12 X10^3/uL; Monocyte% 9.8 % (0-10); NRBC Flagged by Analyzer 0 % (0-5); Neutrophil # 7.83 X10^3/uL (2.7-7.7); Neutrophil % 68.2 % (47-70); Platelet Count 578 K/mm3 (150-450); RBC Distribution Width SD 51.4 fl (35.1-43.9); Red Blood Count 4.03 M/mm3 (4.6-6.2); White Blood Count 11.5 K/mm3 (4.4-11.0)
[2024-06-20 13:20] LABS: ALB/GLOB Ratio 1.2 RATIO (0.9-2.4); AST(SGOT) 29 U/L (15-37); Alanine Aminotransfer ALT/SGPT 42 U/L (16-61); Albumin, Serum 4.1 g/dL (3.2-5.0); Alkaline Phosphatase 77 U/L (45-117); Anion Gap 10 (5-15); BUN 23 mg/dL (7-18); BUN/Creat Ratio 18.1 RATIO (10-20); Calcium,Total 9.7 mg/dL (8.5-10.1); Chloride 101 mmol/L (98-107); Cholesterol 172 mg/dL (200); Creatinine, Serum 1.27 mg/dL (0.70-1.30); EST Glomerular Filtration Rate 61 mL/min (>60); Est Glom Filt Rate - Afr Amer 74 mL/min (>60); Free T3 2.2 pg/mL (2.18-3.98); Globulin 3.4 g/dL (2.2-4.2); Glucose 72 mg/dL (74-106); High Density Lipoprotein 29 mg/dL; Potassium 3.2 mmol/L (3.5-5.1); Protein, Total 7.5 g/dL (6.4-8.2); Sodium Level 138 mmol/L (136-145); T4 Free Direct 1.37 ng/dL (0.76-1.46); Triglycerides 286 mg/dL; Very Low Density Lipoprotein 57 mg/dL (5-40)
== END | disposition home or self-care (01) ==
LOC: BIMLAB 08:19
PROVIDERS: PCP Internal Medicine; Referring Provider Internal Medicine; Visit Provider Internal Medicine
DX: D72.829 Elevated white blood cell count, unspecified (principal); R79.89 Other specified abnormal findings of blood chemistry; F17.210 Nicotine dependence, cigarettes, uncomplicated; E03.9 Hypothyroidism, unspecified; E78.5 Hyperlipidemia, unspecified; I10 Essential (primary) hypertension; E55.9 Vitamin D deficiency, unspecified; Z13.220 Encounter for screening for lipoid disorders
CPT/HCPCS: 36415; 80053; 80061; 82306; 82607; 84439; 84443; 84481; 85025

== ENCOUNTER → 2024-08-02 | Outpatient (CLI) | payer BC, SELFPAY ==
[2024-08-02 12:50] LABS: Carboxyhemoglobin Order 6.2
[2024-08-02 13:53] LABS: Absolute Lymphocyte Count 1.87 X10^3/uL (0.83-4.51); Absolute Neutrophil Count 12.2 X10^3/uL (2.0-7.7); Basophil# 0.08 X10^3/uL; Basophil% 0.5 % (0-1); Eosinophils% 4.8 % (0-5); Hematocrit 40.2 % (40-54); Hemoglobin 13.7 g/dL (13.0-16.5); Lymphocyte # 1.87 X10^3/ul (0.83-4.51); Lymphocyte % 11.1 % (19-41); Mean Corp Hgb Conc 34.1 g/dL (32-36); Mean Corpuscular Volume 99.8 fL (80-94); Mean Platelet Vol. 10.3 fl (6.2-12.0); Monocyte# 1.76 X10^3/uL; Monocyte% 10.5 % (0-10); NRBC Flagged by Analyzer 0 % (0-5); Neutrophil # 12.15 X10^3/uL (2.7-7.7); Neutrophil % 72.4 % (47-70); POSITIVE DIFFERENTIAL YES; Platelet Count 636 K/mm3 (150-450); RBC Distribution Width CV 13.3 % (11.6-14.6); RBC Distribution Width SD 49.1 fl (35.1-43.9); RET-HE 37.2 pg (30-35); Red Blood Count 4.03 M/mm3 (4.6-6.2); Reticulocyte Count 1.89 % (0.5-1.5); White Blood Count 16.8 K/mm3 (4.4-11.0)
[2024-08-02 14:11] LABS: Differential Indicated SCAN CRITERIA MET
[2024-08-02 14:28] LABS: Erythrocyte Sedimentation Rate 2 mm/hr (0-20)
[2024-08-02 14:51] LABS: Ferritin 677 ng/mL (37-417)
[2024-08-02 14:52] LABS: Free T3 2.4 pg/mL (2.18-3.98)
[2024-08-02 14:56] LABS: ALB/GLOB Ratio 1.5 RATIO (0.9-2.4); AST(SGOT) 32 U/L (<=37); Alanine Aminotransfer ALT/SGPT 36 U/L (<=46); Albumin, Serum 4.2 g/dL (3.4-4.8); Alkaline Phosphatase 80 U/L (40-129); Anion Gap 13 (5-15); BUN 31 mg/dL (4-19); BUN/Creat Ratio 28.1 RATIO (10-20); Calcium,Total 9.2 mg/dL (7.6-11.0); Carbon Dioxide 29.1 mmol/L (21.0-32.0); Chloride 98 mmol/L (98-108); Creatinine, Serum 1.09 mg/dL (0.70-1.20); EST Glomerular Filtration Rate 77 (>60); Globulin 2.8 g/dL (2.2-4.2); Glucose 81 mg/dL (70-99); Iron Binding Capacity,Total 240 ug/dL (250-450); Potassium 3.6 mmol/L (3.3-5.1); Sodium Level 140 mmol/L (133-145); Total Bilirubin 0.43 mg/dL (0.00-1.30); Vitamin B12 1079 pg/mL (180-914)
[2024-08-02 15:04] LABS: Iron 47 ug/dL (65-175); Iron Binding Capacity,Unsat 193 ug/dL (228-428); PERCENT IRON SATURATION 19.6 % (9-55)
[2024-08-02 15:06] LABS: Platelet Estimate MOD INC (ADEQ)
[2024-08-02 15:07] LABS: Pathologist Review May foll
[2024-08-02 19:55] LABS: CRP 7.32 mg/L (0.0-3.0)
[2024-08-02 21:04] LABS: LDH 237 U/L (87-241); Phosphorus 2.8 mg/dL (2.7-4.5); Uric Acid 7.4 mg/dL (3.5-7.2)
[2024-08-04 15:08] LABS: Erythropoietin 6.4 mIU/mL (2.6-18.5)
== END | disposition home or self-care (01) ==
LOC: LAB 12:09
PROVIDERS: PCP Internal Medicine; Referring Provider Internal Medicine Medical Oncology; Visit Provider Internal Medicine Medical Oncology
DX: D72.825 Bandemia (principal); R79.89 Other specified abnormal findings of blood chemistry; E03.9 Hypothyroidism, unspecified
CPT/HCPCS: 36415; 80053; 82607; 82668; 82728; 83540; 83550; 83615; 83735; 84100; 84439; 84443; 84481; 84550; 85025; 85045; 85652; 86140

== ENCOUNTER → 2024-09-13 | Outpatient (CLI) | payer BC, SELFPAY ==
--- NOTE | 2024-09-13 07:16 | US_ITS ---
PROCEDURE: ULTRASOUND ABDOMEN LIMITED WITH ELASTOGRAPHY REASON FOR EXAM: HIGH FERRITIN. IRON DEFICIENCY. COMPARISON: None. TECHNIQUE: Right upper quadrant abdominal ultrasound. ElastQ shear wave elastography for non-invasive assessment of liver tissue stiffness. FINDINGS: LIVER: Size: ENLARGED Length: 20 cm Echotexture: Hyperechogenic. Contour: Normal Lesions: None identified Blood flow: Hepatopetal. ELASTOGRAPHY: EQI Med: 10.8 kPa EQI Med Bull: 1.87 m/s GALLBLADDER: Normal COMMON BILE DUCT: Normal 0.28 centimeters in diameter.. PANCREAS: Suboptimal visualization. No masses or ductal dilatation demonstrated. RIGHT KIDNEY: Size measures 13.0 x 5.6 x 4.5 cm. Cortex measures 1.3 cm. US/ABD Limited w/ Elastography IMPRESSION: 1. Steatosis. 2. Hepatomegaly. 3. F 2 to F 3, moderate to severe likelihood of clinically significant hepatic fibrosis. Reference Values: SRU <1.37 m/s (5.7kPa): No to mild fibrosis 1.37 m/s - 2.2 m/s: Moderate to severe fibrosis >2.2 m/s (15kPa): Significant fibrosis / cirrhosis METAVIR Score F2 or higher: 1.34 m/s (5.7kPa) F3 or higher: 1.55 m/s (7.3kPa) F4: 1.80 m/s (10kPa) Reading Location: [facility]
== END | disposition home or self-care (01) ==
LOC: US 07:14
PROVIDERS: PCP Internal Medicine; Referring Provider Internal Medicine Medical Oncology; Visit Provider Internal Medicine Medical Oncology
DX: R79.89 Other specified abnormal findings of blood chemistry (principal); E61.1 Iron deficiency
CPT/HCPCS: 76705; 76981